=== PATIENT | female | born 1990 | race Caucasian/White ===

== ENCOUNTER 2016-12-13 13:52 | Emergency (ER) | payer MEDICAID ==
[~2016-12-13] VITALS: Ht 170.2 cm; Wt 90.7 kg
[2016-12-13 14:05] VITALS: BP_SYST 138
--- NOTE | 2016-12-13 14:09 | NUR ---
Pt to bed 3 via wheelchair
--- NOTE | 2016-12-13 14:15 | NUR ---
DR. RAJAN AT BEDSIDE EXAMINING THE PT.
--- NOTE | 2016-12-13 14:30 | NUR ---
PT. TO ER AAOx4 FOR PAIN R/T FALL THAT HAPPENED AROUND 1313 THIS AFTERNOON, PER PT. SHE WAS RIDING A HORSE FOR TRAINING PURPOSES AND FELL OFF, C/O PAIN 10/10 LOWER BACK, STATES NO OTHER COMPLAINTS
[2016-12-13 14:47] LABS: BILIRUBIN,URINE NEGATIVE (NEGATIVE); CLARITY/URINE CLEAR (CLEAR); COLOR,URINE YELLOW (YELLOW); GLUCOSE,URINE NEGATIVE (NEGATIVE); KETONES,URINE TRACE (NEGATIVE); LEUKOCYTE ESTERASE ,URINE NEGATIVE (NEGATIVE); NITRITE, URINE NEGATIVE (NEGATIVE); PROTEIN URINE NEGATIVE (NEGATIVE); UROBILINOGEN,URINE 0.2 (0.2-1.0)
[2016-12-13 14:57] LABS: BLOOD, URINE TRACE (NEGATIVE)
[2016-12-13 14:58] LABS: BACTERIA,URINE FEW /HPF (None Seen); MUCUS,URINE None Seen /LPF (None Seen); RBC,URINE NONE SEEN /HPF (0-3); WBC,URINE 0-3 /HPF (0-3)
[2016-12-13] MEDS ORDERED: DIAZEPAM 10 MG/2 ML DISP.SYRIN IVP ONE (15:00)
[2016-12-13] MEDS ORDERED: DIPHENHYDRAMINE INJ 50 MG/ML VIAL IVP ONE (15:00)
[2016-12-13] MEDS ORDERED: MORPHINE 4 MG/ML INJ. SYRINGE IVP ONE ×2 (15:00→17:15)
[2016-12-13] MEDS ORDERED: KETOROLAC TROMETHAMINE 30 MG VIAL IVP ONE (15:00)
--- NOTE | 2016-12-13 15:55 | NUR ---
PT. MEDICATED , STATES THAT HER PAIN IS 0/10 AT [facility] AT BEDSIDE
--- NOTE | 2016-12-13 17:01 | NUR ---
Patient resting quietly. No acute distress noted. Vital signs within normal range. Refusing more pain medication at this time. Dr. Colby roland.
[2016-12-13 17:30] VITALS: BP_SYST 131
--- NOTE | 2016-12-13 17:30 | NUR ---
Patient given written and verbal discharge instructions and verbalizes understanding. ER MD DR. RAJAN discussed with patient the results and treatment provided. Patient in stable condition. ID arm band removed. IV catheter removed intact and dressing applied, no active bleeding. Rx of NORCO SOMA given. Patient educated on pain management and to follow up with PMD. Pain Scale 0/10 Opportunity for questions provided and answered.
[2016-12-13] MEDS ORDERED: MORPHINE 2 MG/ML INJ. SYRINGE IVP ONE (18:15)
== END 2016-12-13 17:30 | disposition home or self-care (01) ==
LOC: SED 13:52
DX: S32.018A Other fracture of first lumbar vertebra, initial encounter for closed fracture (principal); R03.0 Elevated blood-pressure reading, without diagnosis of hypertension; V80.010A Animal-rider injured by fall from or being thrown from horse in noncollision accident, initial encounter; Y93.52 Activity, horseback riding; Y92.89 Other specified places as the place of occurrence of the external cause; Y99.8 Other external cause status
CPT/HCPCS: 72131; 81000; 81025; 96374; 96375; 99285; J1200; J1885; J2270; J3360

== ENCOUNTER 2016-12-22 14:40 | Emergency (ER) | payer MEDICAID ==
[~2016-12-22] VITALS: Ht 170.2 cm; Wt 90.7 kg
[2016-12-22 14:50] VITALS: BP_SYST 120
--- NOTE | 2016-12-22 15:01 | NUR ---
DR. SPARKS EXAMINING PT IN TRIAGE ROOM
--- NOTE | 2016-12-22 15:02 | NUR ---
Pt brought by family, A&O x4, ambulatory, pt here for medical clearance states she fell from a horse last week, pt has fracture on L1, needs clearance before going back to work, VSS, pain level 2/10 on back, VSS, CAP REFILL <3, intact ROM.
--- NOTE | 2016-12-22 15:34 | NUR ---
Patient given written and verbal discharge instructions and verbalizes understanding. ER MD discussed with patient the results and treatment provided.Patient in stable condition. ID arm band removed. . Patient educated on pain management and to follow up with PMD. Pain Scale 2/10. Opportunity for questions provided and answered.
[2016-12-22 15:36] VITALS: BP_SYST 120
== END 2016-12-22 15:34 | disposition home or self-care (01) ==
LOC: SED 14:40
DX: Z00.8 Encounter for other general examination (principal)
CPT/HCPCS: 99281